=== PATIENT | male | born 1990 | race Caucasian/White ===

== ENCOUNTER 2018-01-04 21:36 | Emergency (ER) | payer OTHER ==
[2018-01-04] MEDS: KETOROLAC TROMETHAMINE 10 MG TAB PO (22:30)
[2018-01-04] MEDS: BACLOFEN 10 MG TAB PO (22:30)
== END 2018-01-04 23:41 | disposition home or self-care (01) ==
LOC: M ED 21:36
DX: M54.5 Low back pain (principal)
CPT/HCPCS: 72110